=== PATIENT | female | born 1990 | race Two or more races ===

== ENCOUNTER 2022-05-21 16:58 | Inpatient (IN) | payer MEDICAID ==
[~2022-05-21] VITALS: Ht 167.6 cm; Wt 90.3 kg
[2022-05-21 19:56] LABS: GLUCOMETER DEV NAME(LOC) POC.BV
[2022-05-21] MEDS ORDERED: INFLUENZA VIRUS VACCINE QVS 2022-23 (6MO+)/PF 60 MCG/0.5 ML SYRINGE IM. ONE (20:45)
[2022-05-21 21:22] VITALS: BP 108/70
[2022-05-21] MEDS ORDERED: CloNIDine HCL 0.1 MG TABLET PO PRN (21:45)
[2022-05-21] MEDS ORDERED: MAG HYDROX/AL HYDROX/SIMETH ES 30 ML SUSPENSION UDCUP PO PRN (21:45)
[2022-05-21] MEDS ORDERED: GuaiFENesin/D-METHORPHAN [SUGAR-FREE] 200-20MG/10 ML SYRUP UDCUP PO PRN (21:45)
[2022-05-21] MEDS ORDERED: ACETAMINOPHEN 325 MG TABLET PO PRN (21:45)
[2022-05-21] MEDS ORDERED: DOCUSATE SODIUM 100 MG CAPSULE PO PRN (21:45)
[2022-05-21] MEDS ORDERED: ALBUTEROL SULFATE HFA 90 MCG/PUFF 8 GM INHALER IH PRN (21:45)
[2022-05-21] MEDS ORDERED: MAGNESIUM HYDROXIDE SUSPENSION 30 ML UDCUP PO PRN (21:45)
[2022-05-21] MEDS ORDERED: ONDANSETRON HCL 4 MG TABLET PO PRN (21:45)
[2022-05-21] MEDS ORDERED: IBUPROFEN 400 MG TABLET PO PRN (21:45)
[2022-05-21] MEDS ORDERED: NICOTINE 14 MG/24 HOUR PATCH TD PRN (21:45)
[2022-05-21] MEDS ORDERED: LOPERAMIDE HCL 2 MG CAPSULE PO PRN (21:45)
[2022-05-21] MEDS ORDERED: PETROLATUM,WHITE 28 GM JELLY TP PRN (21:45)
[2022-05-21 22:08] VITALS: BP 117/74
[2022-05-21] MEDS: QUEtiapine FUMARATE 100 MG TABLET PO PRN (22:08)
[2022-05-21] MEDS: ZOLPIDEM TARTRATE 10 MG TABLET PO PRN (22:09)
[2022-05-22 07:47] LABS: BASOPHILS % (AUTO) 1.2 % (0.0-2.0); EOSINOPHILS % (AUTO) 4.7 % (1.0-6.0); HEMATOCRIT 38.1 % (36-46); HEMOGLOBIN 12.7 g/dL (12.0-16.0); LYMPHOCYTES # (AUTO) 1.7 K/uL (1.0-4.8); LYMPHOCYTES % (AUTO) 32.4 % (22.0-44.0); MEAN CORPUSCULAR HEMOGLOBIN 29.5 pg (26.0-34.0); MEAN CORPUSCULAR HGB CONC 33.3 G/dL (31.0-37.0); MEAN CORPUSCULAR VOLUME 89 fL (80-100); MONOCYTES # (AUTO) 0.5 K/uL (0.1-1.0); MONOCYTES % (AUTO) 10.4 % (2.0-9.0); NEUTROPHILS # (AUTO) 2.6 K/uL (1.8-7.7); NEUTROPHILS % (AUTO) 51.3 % (40.0-70.0); PLATELET COUNT (AUTO) 237 K/uL (150-450); RED BLOOD CELL COUNT(AUTO) 4.31 MIL/uL (4.00-5.20)
[2022-05-22 07:55] LABS: HEMOGLOBIN A1C 5.6 % (3.8-5.6)
[2022-05-22 08:04] LABS: APPEARANCE,URINE CLEAR (CLEAR); BILIRUBIN,URINE NEGATIVE (NEGATIVE); GLUCOSE, URINE (UA) NEGATIVE (NEGATIVE); KETONES,URINE NEGATIVE (NEGATIVE); LEUKOCYTE ESTERASE ,URINE NEGATIVE (NEGATIVE); NITRATE,URINE NEGATIVE (NEGATIVE); OCCULT BLOOD,URINE NEGATIVE (NEGATIVE); PH,URINE 5.5 (5.0-8.0); PROTEIN,URINE NEGATIVE (NEGATIVE); SPECIFIC GRAVITIY, URINE 1.022 (1.003-1.030); UROBILINOGEN,URINE <=1.0 mg/dL (<=1.0)
[2022-05-22 08:11] LABS: AMPHET/METH SCREEN,URINE NEGATIVE (NEGATIVE); BARBITURATE SCREEN, URINE NEGATIVE (NEGATIVE); BENZODIAZEPINES SCREEN,URINE NEGATIVE (NEGATIVE); CANNABINOID SCREEN,URINE NEGATIVE (NEGATIVE); COCAINE SCREEN,URINE NEGATIVE (NEGATIVE); METHADONE SCREEN, URINE NEGATIVE (NEGATIVE); OPIATE SCREEN,URINE NEGATIVE (NEGATIVE)
[2022-05-22 08:17] LABS: PHENCYCLIDINE SCREEN,URINE NEGATIVE (NEGATIVE)
[2022-05-22 08:23] LABS: ALANINE AMINOTRANSFERASE 26 U/L (12-78); ALBUMIN 3.3 g/dL (3.4-5.0); ALKALINE PHOSPHATASE 64 U/L (46-116); ANION GAP 5 mmol/L (8-16); ASPARTATE AMINOTRANSFERASE 21 U/L (15-37); BILIRUBIN,TOTAL 0.2 mg/dL (0.1-1.0); CALCIUM, TOTAL 8.7 mg/dL (8.8-10.5); CARBON DIOXIDE 28 mmol/L (22-29); CHLORIDE 105 mmol/L (98-107); CHOL/HDL RATIO 2.7 (3.9-5.7); CHOLESTEROL 189 mg/dL (131-200); CREATININE 0.89 mg/dL (0.60-1.30); FREE T4 (FREE THYROXINE) 0.68 ng/dL (0.76-1.46); GLUCOSE,RANDOM 78 mg/dL (70-110); HCG,QUANTITATIVE < 1 mIU/mL (0-6); HDL CHOLESTEROL 69 mg/dL (40-60); LDL CHOL (CALC.) 109 mg/dL (0-130); POTASSIUM 4.3 mmol/L (3.5-5.1); SODIUM SERUM 138 mmol/L (136-145); THYROID STIMULATING HORMONE 1.06 uIU/mL (0.36-3.74); TOTAL PROTEIN, SERUM 7.1 g/dL (6.4-8.2); TRIGLYCERIDES 56 mg/dL (15-150); UREA NITROGEN, BLOOD 18 mg/dL (7-18)
[2022-05-22 08:24] LABS: GLOMERULAR FILTR. RATE CALC > 60 mL/min (>60)
[2022-05-22] MEDS: LORazepam 2 MG TABLET PO PRN ×2 (08:30→17:47)
[2022-05-22 08:49] VITALS: BP 102/61
[2022-05-22] MEDS ORDERED: CloNIDine HCL 0.1 MG TABLET PO PRN (09:45)
[2022-05-22] MEDS ORDERED: ONDANSETRON HCL 4 MG TABLET PO PRN (09:45)
[2022-05-22] MEDS ORDERED: MAG HYDROX/AL HYDROX/SIMETH ES 30 ML SUSPENSION UDCUP PO PRN (09:45)
[2022-05-22] MEDS ORDERED: ACETAMINOPHEN 325 MG TABLET PO PRN (09:45)
[2022-05-22] MEDS ORDERED: NICOTINE 14 MG/24 HOUR PATCH TD PRN (09:45)
[2022-05-22] MEDS ORDERED: IBUPROFEN 400 MG TABLET PO PRN (09:45)
[2022-05-22] MEDS ORDERED: LOPERAMIDE HCL 2 MG CAPSULE PO PRN (09:45)
[2022-05-22] MEDS ORDERED: GuaiFENesin/D-METHORPHAN [SUGAR-FREE] 200-20MG/10 ML SYRUP UDCUP PO PRN (09:45)
[2022-05-22] MEDS ORDERED: ALBUTEROL SULFATE HFA 90 MCG/PUFF 8 GM INHALER IH PRN (09:45)
[2022-05-22] MEDS ORDERED: MAGNESIUM HYDROXIDE SUSPENSION 30 ML UDCUP PO PRN (09:45)
[2022-05-22] MEDS ORDERED: DOCUSATE SODIUM 100 MG CAPSULE PO PRN (09:45)
[2022-05-22] MEDS ORDERED: PETROLATUM,WHITE 28 GM JELLY TP PRN (09:45)
[2022-05-22] MEDS ORDERED: SERTRALINE HCL 50 MG TABLET PO SCH (10:45)
[2022-05-22] MEDS: OXcarbazepine 300 MG TABLET PO SCH ×2 (11:13→20:31)
[2022-05-22] MEDS: ESCITALOPRAM OXALATE 10 MG TABLET PO SCH (11:14)
[2022-05-22 17:45] VITALS: BP 106/68
[2022-05-22] MEDS: QUEtiapine FUMARATE 300 MG TABLET PO SCH (20:31)
[2022-05-22] MEDS: ZOLPIDEM TARTRATE 10 MG TABLET PO PRN (20:31)
[2022-05-22 21:25] VITALS: BP 108/70
[2022-05-23 09:33] VITALS: BP 105/54
[2022-05-23] MEDS: OXcarbazepine 300 MG TABLET PO SCH ×2 (09:34→20:22)
[2022-05-23] MEDS: ESCITALOPRAM OXALATE 10 MG TABLET PO SCH (09:34)
[2022-05-23 20:20] VITALS: BP 102/64
[2022-05-23] MEDS: QUEtiapine FUMARATE 300 MG TABLET PO SCH (20:22)
[2022-05-24] MEDS: OXcarbazepine 300 MG TABLET PO SCH ×2 (08:27→20:16)
[2022-05-24] MEDS: ESCITALOPRAM OXALATE 10 MG TABLET PO SCH (08:27)
[2022-05-24 09:05] VITALS: BP 101/60
[2022-05-24] MEDS: LORazepam 2 MG TABLET PO PRN (18:07)
[2022-05-24] MEDS: QUEtiapine FUMARATE 300 MG TABLET PO SCH (20:16)
[2022-05-24 20:36] VITALS: BP 109/65
[2022-05-25 08:30] VITALS: BP 108/60
[2022-05-25] MEDS: OXcarbazepine 300 MG TABLET PO SCH ×2 (08:34→20:11)
[2022-05-25] MEDS: ESCITALOPRAM OXALATE 10 MG TABLET PO SCH (08:34)
[2022-05-25] MEDS: LORazepam 2 MG TABLET PO PRN (09:56)
[2022-05-25] MEDS: QUEtiapine FUMARATE 300 MG TABLET PO SCH (20:11)
[2022-05-25 20:38] VITALS: BP 110/67
[2022-05-26 07:50] LABS: GLUCOMETER DEV NAME(LOC) POC.BV
[2022-05-26 08:07] VITALS: BP 107/64
[2022-05-26] MEDS: ESCITALOPRAM OXALATE 10 MG TABLET PO SCH (09:17)
[2022-05-26] MEDS: OXcarbazepine 300 MG TABLET PO SCH ×2 (09:17→21:01)
[2022-05-26] MEDS: QUEtiapine FUMARATE 100 MG TABLET PO PRN (12:22)
[2022-05-26 20:19] VITALS: BP 102/63
[2022-05-26] MEDS: QUEtiapine FUMARATE 300 MG TABLET PO SCH (21:01)
[2022-05-26] MEDS: MELATONIN 5 MG TABLET PO SCH (21:01)
[2022-05-27] MEDS: ESCITALOPRAM OXALATE 10 MG TABLET PO SCH (08:19)
[2022-05-27] MEDS: OXcarbazepine 300 MG TABLET PO SCH ×2 (08:21→20:42)
[2022-05-27 08:32] VITALS: BP 117/69
[2022-05-27] MEDS: LORazepam 2 MG TABLET PO PRN (13:48)
[2022-05-27 20:12] VITALS: BP 100/69
[2022-05-27] MEDS: QUEtiapine FUMARATE 300 MG TABLET PO SCH (20:41)
[2022-05-27] MEDS: ZOLPIDEM TARTRATE 10 MG TABLET PO PRN (20:42)
[2022-05-27] MEDS: MELATONIN 5 MG TABLET PO SCH (20:42)
[2022-05-28 08:25] VITALS: BP 101/60
[2022-05-28] MEDS: ESCITALOPRAM OXALATE 10 MG TABLET PO SCH (08:34)
[2022-05-28] MEDS: LORazepam 2 MG TABLET PO PRN ×2 (08:35→18:33)
[2022-05-28] MEDS: OXcarbazepine 300 MG TABLET PO SCH ×2 (08:35→20:01)
[2022-05-28] MEDS: QUEtiapine FUMARATE 300 MG TABLET PO SCH (20:01)
[2022-05-28] MEDS: MELATONIN 5 MG TABLET PO SCH (20:01)
[2022-05-28 20:06] VITALS: BP 97/62
[2022-05-29 05:46] LABS: GLUCOMETER DEV NAME(LOC) BV2S.; GLUCOSE,POINT OF CARE 99 MG/DL (70-110)
[2022-05-29] MEDS: OXcarbazepine 300 MG TABLET PO SCH ×2 (08:10→20:54)
[2022-05-29] MEDS: ESCITALOPRAM OXALATE 10 MG TABLET PO SCH (08:10)
[2022-05-29 08:49] VITALS: BP 104/67
[2022-05-29 20:40] VITALS: BP 106/61
[2022-05-29] MEDS: QUEtiapine FUMARATE 300 MG TABLET PO SCH (20:54)
[2022-05-29] MEDS: MELATONIN 5 MG TABLET PO SCH (20:54)
[2022-05-30] MEDS: ESCITALOPRAM OXALATE 10 MG TABLET PO SCH (08:36)
[2022-05-30] MEDS: OXcarbazepine 300 MG TABLET PO SCH ×2 (08:37→20:37)
[2022-05-30 11:00] VITALS: BP 109/69
[2022-05-30 20:05] VITALS: BP 111/58
[2022-05-30] MEDS: MELATONIN 5 MG TABLET PO SCH (20:37)
[2022-05-30] MEDS: QUEtiapine FUMARATE 300 MG TABLET PO SCH (20:37)
[2022-05-31 08:09] VITALS: BP 96/61
[2022-05-31] MEDS: ESCITALOPRAM OXALATE 10 MG TABLET PO SCH (08:37)
[2022-05-31] MEDS: OXcarbazepine 300 MG TABLET PO SCH ×2 (08:37→20:10)
[2022-05-31] MEDS: BusPIRone HCL 5 MG TABLET PO SCH ×2 (11:14→20:10)
[2022-05-31] MEDS: QUEtiapine FUMARATE 300 MG TABLET PO SCH (20:10)
[2022-05-31] MEDS: MELATONIN 5 MG TABLET PO SCH (20:11)
[2022-05-31 20:27] VITALS: BP 109/63
[2022-06-01] MEDS: BusPIRone HCL 5 MG TABLET PO SCH ×2 (08:07→20:32)
[2022-06-01] MEDS: OXcarbazepine 300 MG TABLET PO SCH ×2 (08:07→20:32)
[2022-06-01] MEDS: ESCITALOPRAM OXALATE 20 MG TABLET PO SCH (08:07)
[2022-06-01 08:32] VITALS: BP 106/68
[2022-06-01 20:05] VITALS: BP 101/64
[2022-06-01] MEDS: QUEtiapine FUMARATE 300 MG TABLET PO SCH (20:32)
[2022-06-01] MEDS: MELATONIN 5 MG TABLET PO SCH (20:32)
[2022-06-02 07:30] LABS: GLUCOMETER DEV NAME(LOC) POC.BV
[2022-06-02] MEDS: OXcarbazepine 300 MG TABLET PO SCH ×2 (08:25→20:28)
[2022-06-02] MEDS: ESCITALOPRAM OXALATE 20 MG TABLET PO SCH (08:25)
[2022-06-02] MEDS: BusPIRone HCL 5 MG TABLET PO SCH ×2 (08:25→20:27)
[2022-06-02 08:29] VITALS: BP 101/63
[2022-06-02] MEDS: LORazepam 2 MG TABLET PO PRN (14:00)
[2022-06-02] MEDS: MELATONIN 5 MG TABLET PO SCH (20:27)
[2022-06-02] MEDS: QUEtiapine FUMARATE 300 MG TABLET PO SCH (20:28)
[2022-06-02 20:32] VITALS: BP 110/61
[2022-06-03] MEDS: ESCITALOPRAM OXALATE 20 MG TABLET PO SCH (08:26)
[2022-06-03] MEDS: BusPIRone HCL 5 MG TABLET PO SCH ×2 (08:26→20:22)
[2022-06-03] MEDS: OXcarbazepine 300 MG TABLET PO SCH ×2 (08:26→20:22)
[2022-06-03 08:31] VITALS: BP 119/76
[2022-06-03] MEDS: LORazepam 2 MG TABLET PO PRN (12:37)
[2022-06-03] MEDS: QUEtiapine FUMARATE 300 MG TABLET PO SCH (20:22)
[2022-06-03] MEDS: MELATONIN 5 MG TABLET PO SCH (20:23)
[2022-06-03 20:24] VITALS: BP 108/61
[2022-06-04 08:06] VITALS: BP 101/59
[2022-06-04] MEDS: OXcarbazepine 300 MG TABLET PO SCH ×2 (09:10→20:51)
[2022-06-04] MEDS: BusPIRone HCL 5 MG TABLET PO SCH ×3 (09:10→20:51)
[2022-06-04] MEDS: ESCITALOPRAM OXALATE 20 MG TABLET PO SCH (09:10)
[2022-06-04] MEDS: LORazepam 2 MG TABLET PO PRN (14:09)
[2022-06-04 20:03] VITALS: BP 101/68
[2022-06-04] MEDS: QUEtiapine FUMARATE 300 MG TABLET PO SCH (20:51)
[2022-06-04] MEDS: MELATONIN 5 MG TABLET PO SCH (20:51)
[2022-06-05 08:13] VITALS: BP 98/57
[2022-06-05] MEDS: ESCITALOPRAM OXALATE 20 MG TABLET PO SCH (08:14)
[2022-06-05] MEDS: OXcarbazepine 300 MG TABLET PO SCH ×2 (08:14→20:20)
[2022-06-05] MEDS: BusPIRone HCL 5 MG TABLET PO SCH ×3 (08:14→20:20)
[2022-06-05] MEDS: LORazepam 2 MG TABLET PO PRN (11:45)
[2022-06-05 16:02] VITALS: BP 102/60
[2022-06-05 20:00] VITALS: BP 106/58
[2022-06-05] MEDS: MELATONIN 5 MG TABLET PO SCH (20:20)
[2022-06-05] MEDS: QUEtiapine FUMARATE 300 MG TABLET PO SCH (20:20)
[2022-06-06 08:13] VITALS: BP 100/60
[2022-06-06] MEDS: ESCITALOPRAM OXALATE 20 MG TABLET PO SCH (09:20)
[2022-06-06] MEDS: BusPIRone HCL 5 MG TABLET PO SCH ×3 (09:20→20:16)
[2022-06-06] MEDS: OXcarbazepine 300 MG TABLET PO SCH ×2 (09:20→20:16)
[2022-06-06] MEDS: MELATONIN 5 MG TABLET PO SCH (20:16)
[2022-06-06] MEDS: QUEtiapine FUMARATE 300 MG TABLET PO SCH (20:16)
[2022-06-06 20:18] VITALS: BP 94/59
[2022-06-07 08:13] VITALS: BP 82/46
[2022-06-07] MEDS: ESCITALOPRAM OXALATE 20 MG TABLET PO SCH (09:23)
[2022-06-07] MEDS: OXcarbazepine 300 MG TABLET PO SCH ×2 (09:23→21:02)
[2022-06-07] MEDS: BusPIRone HCL 5 MG TABLET PO SCH ×3 (09:23→21:01)
[2022-06-07] MEDS ORDERED: OXCA300T57 PO (18:16)
[2022-06-07] MEDS ORDERED: MELA5TAB40 PO (18:16)
[2022-06-07] MEDS ORDERED: ESCI20TA87 PO (18:16)
[2022-06-07] MEDS ORDERED: QUET300T19 PO (18:16)
[2022-06-07] MEDS ORDERED: BUSP5TAB20 PO (18:16)
[2022-06-07 20:16] VITALS: BP 99/63
[2022-06-07] MEDS: QUEtiapine FUMARATE 300 MG TABLET PO SCH (21:01)
[2022-06-07] MEDS: MELATONIN 5 MG TABLET PO SCH (21:01)
[2022-06-07] MEDS: LORazepam 2 MG TABLET PO PRN (21:02)
[2022-06-08] MEDS: BusPIRone HCL 5 MG TABLET PO SCH (08:25)
[2022-06-08] MEDS: OXcarbazepine 300 MG TABLET PO SCH (08:25)
[2022-06-08 08:56] VITALS: BP 109/69
[2022-06-08] MEDS: ESCITALOPRAM OXALATE 20 MG TABLET PO SCH (09:11)
[2022-06-08 10:42] LABS: GLUCOMETER DEV NAME(LOC) POC.BV
== END 2022-06-08 11:46 | disposition home or self-care (01) | DRG 753 ==
LOC: B2S 21:15
PROVIDERS: ADMIT Psychiatry & Neurology Psychiatry; ATTEND Psychiatry & Neurology Psychiatry
DX: F31.4 Bipolar disorder, current episode depressed, severe, without psychotic features (principal); I95.9 Hypotension, unspecified; F10.10 Alcohol abuse, uncomplicated; F41.9 Anxiety disorder, unspecified; F19.10 Other psychoactive substance abuse, uncomplicated; F15.21 Other stimulant dependence, in remission; Z20.822 Contact with and (suspected) exposure to COVID-19; Z65.3 Problems related to other legal circumstances; Z91.51 Personal history of suicidal behavior; Z79.899 Other long term (current) drug therapy
CPT/HCPCS: 80053; 80061; 80307; 81003; 82962; 83036; 84439; 84443; 84702; 85025; Q9967